=== PATIENT | female | born 1950 | race Caucasian/White ===

== ENCOUNTER 2019-11-20 22:34 | Emergency (ER) | payer MEDICAID, MEDICARE ==
[~2019-11-20] VITALS: Ht 157.5 cm; Wt 127.0 kg
[~2019-11-20 22:34] MED LIST: ASPI-1497 PO; ATEN50TA PO; ATENOLOL; ENALAPRIL; LISI10TA5 PO; LOSA25TA26 PO
[2019-11-20] MEDS ORDERED: ONDANSETRON HCL 4MG/2ML INJ IV STA (23:23)
[2019-11-20 23:57] LABS: BASOPHILS % 0.5 % (0.0-2.0); EOSINOPHILS % 7.7 % (0.0-5.0); HEMATOCRIT. 44.7 % (36.0-48.0); HEMOGLOBIN. 15.3 g/dL (12.0-16.0); LYMPHOCYTES % 38.6 % (20.0-50.0); MEAN CORPUSCULAR VOLUME 93.3 fL (81.0-99.0); MEAN PLATELET VOLUME 9.4 fl (7.4-10.4); MONOCYTES % 4.7 % (2.0-8.0); NEUTROPHILS % 48.5 % (40.0-76.0); PLATELET 182 x1000/uL (130-400); RED BLOOD CELL COUNT 4.79 mill/uL (4.2-5.4)
[2019-11-21 00:04] LABS: CHLORIDE 110 mEq/L (98-107)
[2019-11-21 01:04] LABS: CLARITY URINE CLEAR (CLEAR); COLOR URINE YELLOW (YELLOW); KETONES URINE TRACE (NEGATIVE); LEUKOCYTE ESTERASE URINE NEGATIVE (NEGATIVE); NITRITE URINE NEGATIVE (NEGATIVE); OCCULT BLOOD URINE NEGATIVE (NEGATIVE); PROTEIN URINE NEGATIVE (NEGATIVE); SPECIFIC GRAVITY URINE 1.024 (1.005-1.030); UROBILINOGEN URINE 0.2 E.U./dL (0.2-1.0)
[2019-11-21] MEDS ORDERED: KETOROLAC 15MG/ML VIAL IV NR (06:45)
[2019-11-21 09:40] VITALS: BP 161/93
== END 2019-11-21 09:45 | disposition short-term general hospital (02) ==
LOC: ER 22:34
DX: R06.00 Dyspnea, unspecified (principal); R06.02 Shortness of breath; R00.2 Palpitations; F32.9 Major depressive disorder, single episode, unspecified; I10 Essential (primary) hypertension; Z79.899 Other long term (current) drug therapy
CPT/HCPCS: 36415; 71045; 74176; 80053; 81003; 83605; 83690; 83880; 84484; 85025; 93005; 96374; 99285; J2405

== ENCOUNTER 2020-07-10 18:04 | Emergency (ER) | payer MEDICARE ==
[~2020-07-10] VITALS: Ht 152.4 cm; Wt 122.0 kg
[2020-07-10] MEDS ORDERED: SODIUM CHLORIDE 0.9% 1,000 ML IV ONE (18:45)
[2020-07-10 19:20] LABS: BASOPHILS % 0.6 % (0.0-2.0); EOSINOPHILS % 6.9 % (0.0-5.0); HEMATOCRIT. 41.2 % (36.0-48.0); HEMOGLOBIN. 13.8 g/dL (12.0-16.0); MEAN CORPUSCULAR HEMOGLOBIN 31.5 pg (28.0-32.0); MEAN CORPUSCULAR VOLUME 93.7 fL (81.0-99.0); MEAN PLATELET VOLUME 10.5 fl (7.4-10.4); MONOCYTES % 6.2 % (2.0-8.0); NEUTROPHILS % 46.3 % (40.0-76.0); PLATELET 149 x1000/uL (130-400); RED BLOOD CELL COUNT 4.39 mill/uL (4.2-5.4); RED CELL DISTRIBUTION WIDTH 13.2 % (11.6-14.6)
[2020-07-10 19:27] LABS: INR 1.1; PROTHROMBIN TIME 11.1 sec (9.6-11.0)
[2020-07-10 19:32] LABS: CHLORIDE 104 mEq/L (98-107)
[2020-07-10 19:47] LABS: CLARITY URINE CLEAR (CLEAR); COLOR URINE YELLOW (YELLOW); KETONES URINE NEGATIVE (NEGATIVE); LEUKOCYTE ESTERASE URINE TRACE (NEGATIVE); NITRITE URINE POSITIVE (NEGATIVE); OCCULT BLOOD URINE NEGATIVE (NEGATIVE); PROTEIN URINE NEGATIVE (NEGATIVE); SPECIFIC GRAVITY URINE 1.008 (1.005-1.030); UROBILINOGEN URINE 0.2 E.U./dL (0.2-1.0)
[2020-07-10 22:05] VITALS: BP 128/57
[2020-07-10] MEDS ORDERED: IOHEXOL-300 100 ML BOTTLE ONE (23:15)
== END 2020-07-10 22:09 | disposition home or self-care (01) ==
LOC: ER 18:04
DX: R19.7 Diarrhea, unspecified (principal); I10 Essential (primary) hypertension; I25.2 Old myocardial infarction; Z79.82 Long term (current) use of aspirin; Z79.899 Other long term (current) drug therapy
CPT/HCPCS: 36415; 74177; 80053; 81003; 83605; 83690; 85025; 85610; 93005; 96360; 99285; J7030; Q9967

== ENCOUNTER 2020-07-21 03:24 | Emergency (ER) | payer MEDICARE ==
[~2020-07-21] VITALS: Ht 152.4 cm; Wt 122.0 kg
[2020-07-21] MEDS ORDERED: ACETAMINOPHEN 325MG TABLET PO STA (03:52)
[2020-07-21] MEDS ORDERED: SODIUM CHLORIDE 0.9% 1000ML BAG (SEPSIS BOLUS) IV ONE (04:00)
[2020-07-21 05:08] LABS: BASOPHILS % 0.1 % (0.0-2.0); EOSINOPHILS % 0.5 % (0.0-5.0); HEMATOCRIT. 42.8 % (36.0-48.0); HEMOGLOBIN. 14.6 g/dL (12.0-16.0); LYMPHOCYTES % 10.5 % (20.0-50.0); MEAN CORPUSCULAR HEMOGLOBIN 31.7 pg (28.0-32.0); MEAN CORPUSCULAR VOLUME 93.2 fL (81.0-99.0); MEAN PLATELET VOLUME 10.1 fl (7.4-10.4); MONOCYTES % 6.8 % (2.0-8.0); NEUTROPHILS % 82.1 % (40.0-76.0); PLATELET 130 x1000/uL (130-400); RED BLOOD CELL COUNT 4.59 mill/uL (4.2-5.4); RED CELL DISTRIBUTION WIDTH 13.4 % (11.6-14.6)
[2020-07-21 05:10] LABS: CHLORIDE 100 mEq/L (98-107)
[2020-07-21 05:18] LABS: CREATINE KINASE 44 IU/L (26-192); INR 1.1; PROTHROMBIN TIME 11.4 sec (9.6-11.0)
[2020-07-21 05:40] LABS: CLARITY URINE TURBID (CLEAR); COLOR URINE DARK YELLOW (YELLOW); KETONES URINE TRACE (NEGATIVE); LEUKOCYTE ESTERASE URINE 3+ (NEGATIVE); NITRITE URINE POSITIVE (NEGATIVE); OCCULT BLOOD URINE 2+ (NEGATIVE); PROTEIN URINE 2+ (NEGATIVE); SPECIFIC GRAVITY URINE 1.017 (1.005-1.030)
[2020-07-21] MEDS ORDERED: IOHEXOL-300 100 ML BOTTLE ONE (06:00)
[2020-07-21] MEDS ORDERED: LEVOFLOXACIN 750MG PREMIX 150 ML IV ONE (08:00)
[2020-07-21 08:29] VITALS: BP 124/61
== END 2020-07-21 09:55 | disposition short-term general hospital (02) ==
LOC: ER 03:24
DX: A41.9 Sepsis, unspecified organism (principal); I10 Essential (primary) hypertension; Z11.59 Encounter for screening for other viral diseases
CPT/HCPCS: 36415; 71045; 74178; 80053; 81003; 82550; 83605; 83615; 83690; 83880; 84145; 84484; 85025; 85384; 85610; 87040; 87077; 87086; 87186; 87635; 93005; 96361; 96365; 99285; C9803; J1956; J7030; Q9967

== ENCOUNTER 2022-02-01 00:19 | Emergency (ER) | payer MEDICARE, OTHER ==
[~2022-02-01] VITALS: Ht 172.7 cm; Wt 127.0 kg
[~2022-02-01 00:19] MED LIST changes: +LISI10TA26 PO; -LISI10TA5 PO
[2022-02-01 01:22] LABS: BASOPHILS % 0.6 % (0.0-2.0); EOSINOPHILS % 7.5 % (0.0-5.0); HEMATOCRIT. 43.8 % (36.0-48.0); HEMOGLOBIN. 14.7 g/dL (12.0-16.0); LYMPHOCYTES % 37.7 % (20.0-50.0); MEAN CORPUSCULAR HEMOGLOBIN 31.6 pg (28.0-32.0); MEAN CORPUSCULAR VOLUME 93.9 fL (81.0-99.0); MEAN PLATELET VOLUME 9.6 fl (7.4-10.4); NEUTROPHILS % 47.2 % (40.0-76.0); PLATELET 160 x1000/uL (130-400); RED BLOOD CELL COUNT 4.67 mill/uL (4.2-5.4); RED CELL DISTRIBUTION WIDTH 14.1 % (11.6-14.6)
[2022-02-01 01:27] LABS: CHLORIDE 105 mEq/L (98-107)
[2022-02-01 06:00] VITALS: BP 142/70
== END 2022-02-01 06:18 | disposition short-term general hospital (02) ==
LOC: ER 00:19
DX: R06.02 Shortness of breath (principal); R07.89 Other chest pain; Z20.822 Contact with and (suspected) exposure to COVID-19; I11.9 Hypertensive heart disease without heart failure; I25.2 Old myocardial infarction
CPT/HCPCS: 36415; 71045; 80053; 83880; 84484; 85025; 87426; 93005; 99285

== ENCOUNTER 2023-05-31 21:23 | Emergency (ER) | payer MEDICARE, OTHER ==
[~2023-05-31] VITALS: Ht 152.4 cm; Wt 127.0 kg
[2023-05-31 21:39] VITALS: BP 126/75; PULSE 73; RESP 18; TEMP 98.4; O2SAT 95
[2023-06-01 00:54] LABS: BASOPHILS % 0.6 % (0.0-2.0); EOSINOPHILS % 3.8 % (0.0-5.0); HEMATOCRIT. 46.5 % (36.0-48.0); HEMOGLOBIN. 15.6 g/dL (12.0-16.0); LYMPHOCYTES % 26.5 % (20.0-50.0); MEAN CORPUSCULAR HEMOGLOBIN 31.7 pg (28.0-32.0); MEAN CORPUSCULAR HGB CONC 33.6 g/dL (31.0-37.0); MEAN CORPUSCULAR VOLUME 94.5 fL (81.0-99.0); MONOCYTES % 5.1 % (2.0-8.0); PLATELET 166 x1000/uL (130-400); RED BLOOD CELL COUNT 4.92 mill/uL (4.2-5.4); RED CELL DISTRIBUTION WIDTH 13.8 % (11.6-14.6); WHITE BLOOD COUNT 9.3 x1000/uL (4.5-11.0)
[2023-06-01 01:08] LABS: INDEX HEMOLYSI 1 (1-3); INDEX ICTERIC 1 (1-4); INDEX LIPEMIC 1 (1-3)
[2023-06-01 01:16] LABS: CLARITY URINE TURBID (CLEAR); COLOR URINE YELLOW (YELLOW); GLUCOSE URINE NEGATIVE (NEGATIVE); KETONES URINE NEGATIVE (NEGATIVE); LEUKOCYTE ESTERASE URINE NEGATIVE (NEGATIVE); NITRITE URINE NEGATIVE (NEGATIVE); OCCULT BLOOD URINE 3+ (NEGATIVE); PH URINE 8.5 (4.5-8.0); PROTEIN URINE TRACE (NEGATIVE); SPECIFIC GRAVITY URINE 1.012 (1.005-1.030)
[2023-06-01 01:19] LABS: BACTERIA URINE 1+; SQUAMOUS EPITHELIAL CELL URINE 1+ /lpf (RARE/1+); WBC URINE 0-2 /hpf (0-2); YEAST URINE NONE SEEN
[2023-06-01 01:38] LABS: ALANINE AMINOTRANSFERASE 53 IU/L (13-61); ALBUMIN 3.6 g/dL (3.4-5.0); ASPARTATE AMINOTRANSFERASE 45 IU/L (15-37); BILIRUBIN TOTAL 0.9 mg/dL (0.1-1.0); CALCIUM 9.2 mg/dL (8.5-10.1); CARBON DIOXIDE 31 mEq/L (21-32); CHLORIDE 102 mEq/L (98-107); CREATININE 0.8 mg/dL (0.6-1.3); GLUCOSE 126 mg/dL (70-105); PROTEIN TOTAL 7.9 g/dL (6.0-8.3); SODIUM 138 mEq/L (136-145); UREA NITROGEN BLOOD 17 mg/dL (7-21)
[2023-06-01 01:57] LABS: LACTIC ACID 2.7 mmol/L (0.4-2.0)
== END 2023-06-01 06:44 | disposition home or self-care (01) ==
LOC: ER 21:23
DX: R10.30 Lower abdominal pain, unspecified (principal); F32.9 Major depressive disorder, single episode, unspecified; I10 Essential (primary) hypertension; I25.2 Old myocardial infarction
CPT/HCPCS: 36415; 74176; 80053; 81003; 83605; 85025; 93005; 99284

== ENCOUNTER 2025-01-05 19:16 | Emergency (ER) | payer MEDICARE, OTHER ==
[~2025-01-05] VITALS: Ht 157.5 cm; Wt 122.5 kg
[~2025-01-05 19:16] MED LIST changes: +LEVO-65 MT
[2025-01-05 19:21] VITALS: O2SAT 96
[2025-01-05 19:33] VITALS: BP 136/86; PULSE 66; RESP 18; TEMP 37.3; O2SAT 94
[2025-01-05] MEDS: ACETAMINOPHEN 500MG TABLET PO ONE (20:53)
[2025-01-05] MEDS ORDERED: LIDO700A15 TP (21:46)
[2025-01-05] MEDS ORDERED: NAPR-1176 MT (21:46)
== END 2025-01-05 22:06 | disposition home or self-care (01) ==
LOC: ER 19:16
DX: S80.11XA Contusion of right lower leg, initial encounter (principal); I10 Essential (primary) hypertension; M17.11 Unilateral primary osteoarthritis, right knee; Z79.1 Long term (current) use of non-steroidal anti-inflammatories (NSAID); Z79.82 Long term (current) use of aspirin; Z79.899 Other long term (current) drug therapy; W22.03XA Walked into furniture, initial encounter; Y93.01 Activity, walking, marching and hiking; Y92.009 Unspecified place in unspecified non-institutional (private) residence as the place of occurrence of the external cause; Y99.8 Other external cause status
CPT/HCPCS: 73590; 99283

== ENCOUNTER 2025-04-14 09:35 | Emergency (ER) | payer MEDICARE ==
[~2025-04-14] VITALS: Ht 162.6 cm; Wt 105.0 kg
[~2025-04-14 09:35] MED LIST changes: +LIDO-53 TP; +MIRT-90 MT; +NAPR-1176 MT; +NAPR-1486 MT
[2025-04-14 09:37] VITALS: TEMP 36.8; O2SAT 98
[2025-04-14 12:01] VITALS: BP 125/88; PULSE 66; RESP 17; O2SAT 95
== END 2025-04-14 12:05 | disposition home or self-care (01) ==
LOC: ER 09:35
DX: S71.011D Laceration without foreign body, right hip, subsequent encounter (principal); F32.A Depression, unspecified; I25.2 Old myocardial infarction; I11.9 Hypertensive heart disease without heart failure; Z79.82 Long term (current) use of aspirin; Z79.1 Long term (current) use of non-steroidal anti-inflammatories (NSAID); Z98.890 Other specified postprocedural states; Z79.899 Other long term (current) drug therapy; X58.XXXD Exposure to other specified factors, subsequent encounter
CPT/HCPCS: 99283